=== PATIENT | male | born 1995 | race Caucasian/White ===

== ENCOUNTER 2021-09-22 09:26 | Emergency (ER) | payer SELFPAY ==
[~2021-09-22] VITALS: Ht 175.3 cm; Wt 77.3 kg
[2021-09-22 09:56] VITALS: BP 138/84; PULSE 90; TEMP 98.3
== END 2021-09-22 10:44 | disposition home or self-care (01) ==
LOC: COL.ER 09:26
DX: U07.1 COVID-19 (principal)

== ENCOUNTER 2022-11-02 15:19 | Emergency (ER) | payer SELFPAY ==
[~2022-11-02] VITALS: Ht 175.3 cm; Wt 77.3 kg
[2022-11-02 16:21] LABS: BASO # 0.1 K/mm3 (0.0-0.2); BASO % 0.6 % (0.0-2.0); EOS # 0.3 K/mm3 (0.0-0.7); EOS % 2.4 % (0.0-4.0); GRAN # 9.2 K/mm3 (1.4-6.5); GRAN % 65.6 % (42.2-75.2); HEMATOCRIT 44.6 % (42.0-52.0); HEMOGLOBIN 14.8 g/dl (13.5-18.0); LYMPH # 3.5 K/mm3 (1.2-3.4); LYMPH % 24.6 % (20.0-51.0); MEAN CELL VOLUME 85 fl (80.0-100.0); MEAN CORPUSCULAR HEMOGLOBIN 28 pg (27-31); MEAN CORPUSCULAR HGB CONC 33 g/dl (33.0-37.0); MEAN PLATELET VOLUME 10.9 fl (7.4-10.4); MONO # 0.8 K/mm3 (0.1-0.6); MONO % 5.9 % (1.7-9.3); PLATELET COUNT 273 K/mm3 (130-400); RED BLOOD COUNT 5.26 M/mm3 (4.20-5.60)
[2022-11-02 16:40] LABS: ALBUMIN 3.8 gm/dL (3.5-5.0); BILIRUBIN,TOTAL 0.5 mg/dL (0.2-1.2); CALCIUM 8.8 mg/dL (8.4-10.2); CREATININE, serum 0.88 mg/dL (0.72-1.25); POTASSIUM 4.1 mmol/L (3.5-4.5); TOTAL PROTEIN 7.5 gm/dL (6.2-8.1)
[2022-11-02 16:57] VITALS: BP 126/77; PULSE 68
== END 2022-11-02 16:57 | disposition home or self-care (01) ==
LOC: COL.ER 15:19
PROVIDERS: Emergency Medicine
DX: M27.3 Alveolitis of jaws (principal); R20.2 Paresthesia of skin; F17.200 Nicotine dependence, unspecified, uncomplicated; Z28.310 Unvaccinated for COVID-19

== ENCOUNTER 2024-01-26 17:02 | Emergency (ER) | payer SELFPAY ==
[~2024-01-26] VITALS: Ht 182.9 cm; Wt 81.8 kg
[2024-01-26 18:50] VITALS: BP 140/80; PULSE 75; TEMP 98.6
== END 2024-01-26 18:50 | disposition home or self-care (01) ==
LOC: COL.ER 17:02
DX: S09.90XA Unspecified injury of head, initial encounter (principal); S00.81XA Abrasion of other part of head, initial encounter; W22.09XA Striking against other stationary object, initial encounter; Y92.89 Other specified places as the place of occurrence of the external cause; Y99.0 Civilian activity done for income or pay